=== PATIENT | male | born 1950 | race Caucasian/White ===

== ENCOUNTER → 2024-07-06 | Outpatient (CLI) | payer MEDICARE ==
[~2024-07-06] MED LIST: Gadoterate 20 ML VIAL IV ONE
== END ==
LOC: RAD 08:48
DX: M47.816 Spondylosis without myelopathy or radiculopathy, lumbar region (principal); M48.061 Spinal stenosis, lumbar region without neurogenic claudication; M25.78 Osteophyte, vertebrae; M47.817 Spondylosis without myelopathy or radiculopathy, lumbosacral region; M48.07 Spinal stenosis, lumbosacral region; M62.81 Muscle weakness (generalized); Z98.890 Other specified postprocedural states
CPT/HCPCS: A9575